=== PATIENT | male | born 2000 | race African-American/Black ===

== ENCOUNTER 2020-07-07 01:33 | Inpatient (IN) | payer OTHER ==
[2020-07-07] MEDS ORDERED: Ondansetron PF 4 MG/2 ML Vial IVP PRN (03:03)
[2020-07-07] MEDS ORDERED: Ondansetron ODT 4 MG TAB PO PRN (03:03)
[2020-07-07] MEDS ORDERED: Dextrose 5% in Water 1,000 ML IV PRN (03:03)
[2020-07-07] MEDS ORDERED: Dextrose 50% Abboject 50 ML SYRINGE SLOW IVP PRN (03:03)
[2020-07-07] MEDS ORDERED: Morphine 2 MG/ML VIAL SLOW IVP PRN (03:03)
[2020-07-07] MEDS ORDERED: Morphine 4 MG/ML VIAL SLOW IVP PRN (03:03)
[2020-07-07 03:29] VITALS: BMI 19.3
[2020-07-07] MEDS: Famotidine/PF 20 mg/2ml Vial SLOW IVP SCH ×2 (09:45→20:03)
[2020-07-07] MEDS: Sodium Chloride 0.9% 1,000 ML IV SCH ×3 (09:51→21:44)
[2020-07-07] MEDS ORDERED: Clindamycin/D5W 600 mg/50 ml Premix Bag ONE (10:37)
[2020-07-07] MEDS ORDERED: AFRIN NASAL MIST 15 ML BOT ONE (11:32)
[2020-07-07] MEDS ORDERED: Fentanyl 100 MCG/2 ML VIAL ONE ×2 (11:32→15:51)
[2020-07-07] MEDS ORDERED: Chlorhexidine Gluconate 15 ML UDCUP SSP ONE (11:47)
[2020-07-07] MEDS ORDERED: Lidocaine 1% w/Epinephrine 1:100K 20 ML VIAL ONE (11:47)
[2020-07-07] MEDS ORDERED: Hydrocortisone 1% Cream 30 GM TUBE ONE (11:47)
[2020-07-07] MEDS ORDERED: Dexamethasone 20 MG/5 ML VIAL ONE (11:55)
[2020-07-07] MEDS ORDERED: Rocuronium Bromide 10 MG/ML (10ML VIAL) ONE (11:55)
[2020-07-07] MEDS ORDERED: PHENYLEPHRINE-NS 100 MCG/ML 10 ML SYRINGE ONE (11:55)
[2020-07-07] MEDS ORDERED: Ondansetron PF 4 MG/2 ML Vial ONE (11:55)
[2020-07-07] MEDS ORDERED: PROPOFOL 200 MG/20 ML VIAL ONE (11:55)
[2020-07-07] MEDS ORDERED: Lidocaine 1% PF 5 ML VIAL ONE (11:55)
[2020-07-07] MEDS ORDERED: Glycopyrrolate 0.2 MG/ML 5 ML SYRINGE ONE (11:55)
[2020-07-07] MEDS: Clindamycin/D5W 600 MG in Premix Bag 1 BAG IVPB SCH ×3 (11:59→20:03)
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
[2020-07-07] MEDS ORDERED: SUGAMMADEX SODIUM 500 MG/5 ML VIAL ONE (15:04)
[2020-07-07] MEDS ORDERED: Promethazine HCl 25 MG/ML VIAL IM PRN (15:15)
[2020-07-07] MEDS ORDERED: Ondansetron HCl/PF 4 MG/2 ML Vial IVP PRN (15:15)
[2020-07-07] MEDS ORDERED: Promethazine HCl 25 MG/ML VIAL SLOW IVP PRN (15:15)
[2020-07-07] MEDS ORDERED: Hydrocodone-Acetamin 15 ML UDCUP PO PRN (16:53)
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
[2020-07-07] MEDS: Ibuprofen 100 MG/5 ML UDCUP PO SCH ×2 (18:18→23:55)
[2020-07-07] MEDS: Chlorhexidine Gluconate 15 ML UDCUP SSP SCH (20:03)
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
[2020-07-08] MEDS: Clindamycin/D5W 600 MG in Premix Bag 1 BAG IVPB SCH (03:54)
[2020-07-08] MEDS: Ibuprofen 100 MG/5 ML UDCUP PO SCH ×2 (05:46→12:35)
[2020-07-08] MEDS: Chlorhexidine Gluconate 15 ML UDCUP SSP SCH (08:32)
[2020-07-08] MEDS: Famotidine/PF 20 mg/2ml Vial SLOW IVP SCH (08:32)
[2020-07-08 12:44] VITALS: BP 106/71; TEMP 97.7
[2020-07-08 12:58] LABS: SARS-CoV-2 MS2 Positive; SARS-CoV-2 N Gene Negative; SARS-CoV-2 S Gene Negative; SARS-CoV-2 by NAA Not Detected (NotDetected); SARS-CoV-2 orf1ab Negative
[2020-07-08] MEDS ORDERED: Clindamycin 75 mg/5 ml Oral Suspension PER TUBE SCH (13:00)
== END 2020-07-08 13:00 | disposition home or self-care (01) | DRG 142 ==
LOC: ERS 01:33 → SURG A 01:48 → OBSVTOIN 03:03
PROVIDERS: ADMIT Surgery; ATTEND Surgery
PROC: 0NSV04Z Reposition Left Mandible with Internal Fixation Device, Open Approach (ICD-10-PCS; principal; 2020-07-07)
PROC: 0NST04Z Reposition Right Mandible with Internal Fixation Device, Open Approach (ICD-10-PCS; 2020-07-07)
DX: S02.652B Fracture of angle of left mandible, initial encounter for open fracture (principal); S02.601B Fracture of unspecified part of body of right mandible, initial encounter for open fracture; Z20.828 Contact with and (suspected) exposure to other viral communicable diseases; Y04.0XXA Assault by unarmed brawl or fight, initial encounter
CPT/HCPCS: 87635; 99285; C1713; J1100; J2405; J2704; J3010; J3490; S0028; U0003